=== PATIENT | male | born 1985 | race Caucasian/White ===

== ENCOUNTER → 2021-08-18 | Outpatient (CLI) | payer OTHER ==
--- NOTE | 2021-08-18 14:51 | KCIC ---
EXAMINATION: MRI RIGHT KNEE WITHOUT IV CONTRAST CLINICAL HISTORY: TEAR OF MEDIAL MENISCUS. Medial knee pain in recent weeks. May have injured working out/basketball. TECHNIQUE: Multiplanar multisequential images obtained through the knee without intravenous contrast. COMPARISON: Right knee radiographs 08/12/2021 FINDINGS: MENISCI: Medial Meniscus: Linear intermediate signal in the posterior horn and body which appears to extend to the inferior articular surface, nonspecific and may be related to degenerative signal changes but lewis spicious for a nondisplaced horizontal tear with possible small parameniscal cyst emanating from the medial posterior horn. Lateral Meniscus: Intact. LIGAMENTS: ACL: Intact PCL: Intact MCL: Intact LCL Complex: Intact CARTILAGE: Medial Femoral Condyle: Normal Medial Tibial Plateau: Normal Lateral Femoral Condyle: Normal Lateral Tibial Plateau: Normal Patella: Normal Trochlea: Normal TENDONS: Distal quadriceps and patellar tendons intact. Popliteus tendon intact. BONES AND MARROW: No evidence of acute fracture or suspicious marrow replacing process. Mild focal ma rrow edema in the peripheral posterior medial tibial plateau. MUSCLES: Muscle bulk and signal intensity within normal limits. JOINT FLUID AND SYNOVIUM: Small joint effusion. No synovitis. No Black's cyst. IMPRESSION: Findings suspicious for a medial meniscus tear as described. Electronically signed by: Heladio Stein DO (08/18/2021 2:49 PM) [id number]
== END ==
LOC: KCIC MRI 12:22
PROVIDERS: ATTEND Physician Assistant
DX: S83.241A Other tear of medial meniscus, current injury, right knee, initial encounter (principal); R60.0 Localized edema; M25.461 Effusion, right knee; X58.XXXA Exposure to other specified factors, initial encounter; Y93.89 Activity, other specified; Y92.89 Other specified places as the place of occurrence of the external cause; Y99.8 Other external cause status
CPT/HCPCS: 73721

== ENCOUNTER 2021-11-25 07:45 | Day surgery (SDC) | payer OTHER ==
[~2021-11-25] VITALS: Ht 185.4 cm; Wt 109.0 kg
[~2021-11-25 07:45] MED LIST: BUPIVACAINE-EPI 0.25%-1:200000 MPF 30 ML VIAL. ONE; HYDROmorphone 2 MG/ML INJ. IVP PRN; IV RINGERS,LACTATED 1000ML 1,000 ML IV SCH; MORPHINE SULFATE 2 MG/ML INJ. IVP PRN; PROCHLORPERAZINE 10 MG/2 ML VIAL. IVP PRN; fentaNYL PF VIAL 100 MCG/2 ML VIAL IVP PRN
[2021-11-25] MEDS ORDERED: PROPOFOL 10 MG/ML (20ML) VIAL. IV ONE (08:45)
[2021-11-25] MEDS ORDERED: DEXAMETHASONE SOD PHOS 4 MG/ML VIAL ONE (08:46)
[2021-11-25] MEDS ORDERED: ONDANSETRON PF 4 MG/2 ML VIAL. ONE (08:46)
[2021-11-25] MEDS ORDERED: fentaNYL PF VIAL 100 MCG/2 ML VIAL ONE (09:06)
--- NOTE | 2021-11-25 09:08 | HP ---
DATE OF SERVICE: 11/25/2021 ADMIT DATE: 11/25/2021 REASON FOR ADMISSION: The patient here today with complaints of right knee pain. BRIEF HISTORY: The patient is a 36-year-old male who is here today for continued right knee pain. He tells me that after the last time I saw him, he back in September felt like things were improving a little bit. He was active and able to be running; however, while the anti-inflammatories were initially working, over the last couple of weeks pain is significantly increased at this point. There were no locking or instability episodes with pain continued on the medial aspect of the joint. PAST MEDICAL HISTORY: Remarkable for hyperlipidemia, hyperhidrosis. PAST SURGICAL HISTORY: Left knee arthroscopy back in 2016. FAMILY HISTORY: Unremarkable. SOCIAL HISTORY: No tobacco use, alcohol use only socially. MEDICATIONS: Hypercare 20% solution topically. Otherwise, occasional Tylenol or ibuprofen. PHYSICAL EXAMINATION: GENERAL: Today he is 250 pounds. He is 6 feet 1 inch. He is alert and oriented. CARDIOVASCULAR: Heart is of regular rate and rhythm. LUNGS: Clear to auscultation in all tao of the lungs. ABDOMEN: Soft and nontender. EXTREMITIES: The knee shows that there is some mild effusion today. Pain with palpation of the medial compartment with positive Apley's test. These tests are negative in the lateral compartment. No instability in the varus, valgus or AP plane with range of motion is 0-125 degrees of flexion today. Any type of rotation and flexion causes pain medially. No atrophy of musculature. Distal neurovascular status is fully intact. IMPRESSION: Medial meniscal tear, right knee. PLAN: I have already talked with him, but have gone over again the risks, complications as well as benefits and expectations of surgery, postoperative protocol and followup. We will get this set up as soon as he sees anesthesia and go back to surgery. SALAS/DANI MADRID: Timur TID: [id number]
--- NOTE | 2021-11-25 09:31 | PDOC4 ---
OPERATIVE NOTE Date: Date: Nov 25, 2021 Pre-Op Diagnosis: Right medial meniscus tear Post-Op Diagnosis: Same Procedure Performed: Right knee arthroscopy with partial medial meniscectomy Surgeon: Lacie Anesthesia Type: General Blood Loss: 20 cc Specimans Obtained: None Complications: Patient tolerated the procedure well without any apparent complications. Operative Note: See dictation LILLIAM SANDS Jr. DO Nov 25, 2021 09:31
[2021-11-25] MEDS ORDERED: HYDR-2761 PO (09:33)
--- NOTE | 2021-11-25 09:35 | DISCH ---
DISCHARGE INSTRUCTIONS Condition on Discharge Condition on Discharge: Stable Activity After Discharge Activity Instructions for Disc: Resume previous activity, Activity as tori ated, Avoid exertion Driving Instructions after Dis: Do not drive today Weight Bearing Status after Di: Full weight bearing Wound Incision Care Wound/Incision Care: Ice to area for comfort, Keep wound elevated, Change dressing Other wound/incision instructi: May change dressings postoperative day #3 Follow-Up Follow up with: 10 to 14 days LILLIAM SANDS Jr. DO Nov 25, 2021 09:35
--- NOTE | 2021-11-25 09:39 | OP ---
DATE OF SURGERY: 11/25/2021 PREOPERATIVE DIAGNOSIS: Medial meniscal tear, right knee. POSTOPERATIVE DIAGNOSIS: Medial meniscal tear, right knee. PROCEDURE: Partial right knee arthroscopy with partial medial meniscectomy. SURGEON: Cody Medellin Jr, DO ANESTHESIA: General. COMPLICATIONS: None. ESTIMATED BLOOD LOSS: 20 mL DESCRIPTION OF PROCEDURE: The patient was taken to the operative suite, given a general anesthetic. Right lower extremity was placed in a knee thomson, prepped and draped in a sterile fashion. Inferomedial and inferolateral portals were established. Knee was insufflated with saline. Visualization of the patella and the patellofemoral sulcus were noted to be completely intact tracking appropriately without any abnormalities or problems of the chondral surface. Scope was then taken into the medial and lateral gutters. No loose bodies were noted. However, upon entering the medial compartment, there was noted to be a complex tear of the posterior horn of the medial meniscus beginning towards the area of the root, but the root was completely intact with probing and this was the anterior one-half which was nonrepairable. Therefore, using basket forceps and a shaver, a partial medial meniscectomy was performed. This was debrided back to stable tissue. The remnant was noted to be entirely adherent to the capsule without any abnormalities, problems or concerns or issues at this point. Chondral surface was completely intact to the medial compartment. The ACL and the PCL were probed and noted to be intact and stable both visually as well as with probing. The lateral compartment was noted to be pristine. There were no abnormalities with probing of the lateral compartment either. Therefore, after this was thoroughly irrigated and suctioned dry, all instruments were removed. Wounds were reapproximated in an interrupted fashion using 3-0 nylon. Sterile dressing was applied. The patient was then taken from the operative bed to the postoperative bed, taken to the PACU in stable condition. ROSANNA DR: Timur TID: [id number]
[2021-11-25 09:55] VITALS: BP 153/85
[2021-11-25] MEDS ORDERED: HYDROcodone/APAP 5/325MG 1 TAB TABLET PO ONE (10:00)
== END 2021-11-25 10:30 | disposition home or self-care (01) ==
LOC: SURG 07:45
PROVIDERS: ATTEND Orthopaedic Surgery
DX: S83.241A Other tear of medial meniscus, current injury, right knee, initial encounter (principal); I10 Essential (primary) hypertension; Z79.899 Other long term (current) drug therapy; Z98.890 Other specified postprocedural states; Z72.89 Other problems related to lifestyle; X58.XXXA Exposure to other specified factors, initial encounter; Y93.89 Activity, other specified; Y92.89 Other specified places as the place of occurrence of the external cause; Y99.8 Other external cause status
CPT/HCPCS: 29881; A4930; J0690; J1100; J2405; J2704; J3010; J3490